=== PATIENT | female | born 1960 | race American Indian/Alaskan Native ===

== ENCOUNTER 2016-12-02 23:14 | Emergency (ER) | payer MEDICAID ==
[2016-12-02 23:22] VITALS: TEMP 98.7; BMI 19.5
--- NOTE | 2016-12-02 23:29 | ED PDOC ---
Arrival/HPI - General Chief Complaint: Psychiatric Evaluation Time Seen by Provider: 12/02/16 23:17 Historian: Patient, EMS - History of Present Illness Narrative History of Present Illness (Text): 12/02/16 23:26 Angelica Rene is a 56 year old female who presents to the Emergency department by EMS for suicidal ideation. Patient states she was feeling depressed and wanted to harm herself. Patient states she took 3 Ambien tonight and admits to drinking alcohol tonight. Patient denies any homicidal ideation, fever, chills, chest pain, shortness of breath, nausea, vomiting, diarrhea, urinary symptoms, back pain, neck pain, headache, dizziness, or any other complaints. Time/Duration: Other (tonight) Symptom Course: Unchanged Activities at Onset: Light, Emotional Upset Context: Home Past Medical History - Provider Review Nursing Documentation Reviewed: Yes - Psychiatric Hx Substance Use: No Family/Social History - Physician Review Nursing Documentation Reviewed: Yes Family/Social History: No Known Family HX Smoking Status: Unknown If Ever Smoked Hx Alcohol Use: Yes Hx Substance Use: No Allergies/Home Meds Allergies/Adverse Reactions: Allergies Unobtainable Allergy (Verified 12/02/16 23:21) Home Medications: Home Meds Medication Instructions Recorded Confirmed Unobtainable 12/02/16 12/02/16 Review of Systems - Physician Review All systems were reviewed & negative as marked: Yes - Review of Systems Constitutional: Normal. absent: Fevers Eyes: Normal ENT: Normal Respiratory: Normal. absent: SOB, Cough Cardiovascular: Normal. absent: Chest Pain Gastrointestinal: Normal Genitourinary Female: Normal Musculoskeletal: Normal Skin: Normal Neurological: Normal Endocrine: Normal Hemo/Lymphatic: Normal Psychiatric: Depression, Suicidal Ideation Physical Exam Vital Signs Reviewed: Yes Vital Signs Temp Pulse Resp BP Pulse Ox 12/03/16 06:21 62 17 104/70 99 12/03/16 05:53 65 14 125/87 98 12/03/16 05:38 76 16 155/104 H 99 12/03/16 05:11 74 156/100 H 12/03/16 04:54 74 15 162/104 H 97 12/03/16 03:05 80 16 130/90 98 12/03/16 00:58 75 18 132/86 96 12/02/16 23:21 98.7 F 87 16 147/93 H 96 Temperature: Afebrile Blood Pressure: Normal Pulse: Regular Respiratory Rate: Normal Appearance: Positive for: Well-Appearing, Non-Toxic, Comfortable Pain Distress: None Mental Status: Positive for: Lethargic - Systems Exam Head: Present: Atraumatic, Normocephalic Pupils: Present: PERRL Extroacular Muscles: Present: EOMI Conjunctiva: Present: Normal Mouth: Present: Moist Mucous Membranes Neck: Present: Normal Range of Motion Respiratory/Chest: Present: Clear to Auscultation, Good Air Exchange. No: Respiratory Distress, Accessory Muscle Use Cardiovascular: Present: Regular Rate and Rhythm, Normal S1, S2. No: Murmurs Abdomen: Present: Normal Bowel Sounds. No: Tenderness, Distention, Peritoneal Signs Back: Present: Normal Inspection Upper Extremity: Present: Normal Inspection. No: Cyanosis, Edema Lower Extremity: Present: Normal Inspection. No: Edema Neurological: Present: GCS=15, CN II-XII Intact Skin: Present: Warm, Dry, Normal Color. No: Rashes Psychiatric: Present: Lethargic Medical Decision Making ED Course and Treatment: 12/02/16 23:26 Impression: 56 year old female for depression and suicidal ideation after taking 3 Ambien. Differential Diagnosis include but are not limited to: depression vs. suicidal ideation Plan: -- EKG -- Chest X-ray -- Labs, alcohol level -- Urinalysis, urine drug screen -- Reassess and disposition Progress Notes: 12/02/16 23:51 reviewed EKG, NSR at [address]pm[address] Non-specific ST/T wave changes. 12/03/16 00:18 reviewed radiology, Chest X-ray shows no acute processes. 12/03/16 00:45 reviewed labs, potassium: 3.3, K-Dur ordered. Alcohol:77, negative drug screen. Pt medically cleared for psych evaluation. 12/03/16 04:47 Pt seen and evaluated by BALA Hale, who discussed case with Dr. Medrano. Pt to be screened by [facility]. - Lab Interpretations Lab Results: 12/02/16 23:40 12/02/16 23:40 Lab Results 12/02/16 23:40: Alcohol, Quantitative 77 H 12/02/16 23:40: Salicylates < 1 L, Acetaminophen < 10.0 L 12/02/16 23:40: Urine Opiates Screen Negative, Urine Methadone Screen Negative, Ur Barbiturates Screen Negative, Ur Phencyclidine Scrn Negative, Ur Amphetamines Screen Negative, U Benzodiazepines Scrn Negative, U Oth Cocaine Metabols Negative, U Cannabinoids Screen Negative 12/02/16 23:40: Sodium 142, Potassium 3.3 L, Chloride 108 H, Carbon Dioxide 24, Anion Gap 13, BUN 13, Creatinine 0.7, Est GFR ( Amer) > 60, Est GFR (Non- Af Amer) > 60, Random Glucose 94, Calcium 9.1, Total Bilirubin 0.6, AST 31, ALT 26, Alkaline Phosphatase 79, Total Protein 7.6, Albumin 4.1, Globulin 3.5, Albumin/Globulin Ratio 1.2 12/02/16 23:40: Urine Color Yellow, Urine Appearance Clear, Urine pH 6.0, Ur Specific [place] 1.020, Urine Protein Negative, Urine Glucose (UA) Negative, Urine Ketones Negative, Urine Blood Moderate H, Urine Nitrate Negative, Urine Bilirubin Negative, Urine Urobilinogen 0.2, Ur Leukocyte Esterase Small H, Urine RBC 0 - 2, Urine WBC 1 - 3, Ur Epithelial Cells 1 - 3, Urine Bacteria Few 12/02/16 23:40: WBC 7.3, RBC 4.07, Hgb 13.2, Hct 36.5, MCV 89.7, MCH 32.4, MCHC 36.2, RDW 12.1, Plt Count 201, MPV 9.5, Gran % 50.2, Lymph % (Auto) 43.4 H, [place] % (Auto) 5.0, Eos % (Auto) 1.1 L, Baso % (Auto) 0.3, Gran # 3.65, Lymph # 3.2, Gregory # 0.4, Eos # 0.1, Baso # 0.02 I have reviewed the lab results: Yes - RAD Interpretation Radiology Orders: 12/02/16 23:35 CHEST PORTABLE [RAD] Stat Beef Boner: ED Physician - EKG Interpretation Interpreted by ED Physician: Yes Type: 12 lead EKG - Medication Orders Current Medication Orders: Discontinued Medications Clonidine HCl (Catapres) 0.1 mg PO STAT STA Stop: 12/03/16 05:06 Last Admin: 12/03/16 05:11 Dose: 0.1 mg Potassium Chloride (K-Dur 20 Meq Er Tab) 20 meq PO ONCE ONE Stop: 12/03/16 01:04 Last Admin: 12/03/16 01:15 Dose: 20 meq - Transfer of Care Patient signed out to Dr:: anil [facility] - Ailinibbrian Statement The provider has reviewed the documentation as recorded by the Scribe Shahnaz Trejo All medical record entries made by the Scribe were at my direction and personally dictated by me. I have reviewed the chart and agree that the record accurately reflects my personal performance of the history, physical exam, medical decision making, and the department course for this patient. I have also personally directed, reviewed, and agree with the discharge instructions and disposition. Disposition/Present on Arrival - Present on Arrival Any Indicators Present on Arrival: No History of DVT/PE: No History of Uncontrolled Diabetes: No Urinary Catheter: No History of Decub. Ulcer: No History Surgical Site Infection Following: None - Disposition Have Diagnosis and Disposition been Completed?: Yes Diagnosis: Suicidal ideations Disposition Time: 07:00 Condition: GOOD
[2016-12-02 23:56] LABS: ADD MANUAL DIFF? NO
[2016-12-03 00:08] LABS: ALB/GLOB RATIO 1.2 (1.1-1.8); ALKALINE PHOSPHATASE 79 U/L (38-133); ALT/SGPT 26 U/L (7-56); AST/SGOT 31 U/L (15-39); BILIRUBIN,TOTAL 0.6 mg/dL (0.2-1.3); BLOOD UREA NITROGEN 13 mg/dL (7-21); CALCIUM 9.1 mg/dL (8.4-10.5); CARBON DIOXIDE 24 mmol/L (21-33); CHLORIDE 108 mmol/L (98-107); GFR AFRICAN-AMERICAN > 60; GLUCOSE,RANDOM 94 mg/dL (70-110); POTASSIUM 3.3 mmol/L (3.6-5.0); SODIUM 142 mmol/L (132-148); TOTAL PROTEIN 7.6 g/dL (5.8-8.3)
[2016-12-03 00:26] LABS: URINE BILIRUBIN NEGATIVE (NEGATIVE); URINE BLOOD MODERATE (NEGATIVE); URINE GLUCOSE (UA) NEGATIVE (NEGATIVE); URINE KETONE NEGATIVE (NEGATIVE); URINE LEUKOCYTE ESTERASE SMALL Leu/uL (NEGATIVE); URINE PROTEIN NEGATIVE mg/dL (<30 mg/dL); URINE UROBILINOGEN 0.2 E.U./dL (<1 E.U./dL)
[2016-12-03 00:27] LABS: BASO # 0.02 K/mm3 (0.0-2.0); BASO % 0.3 % (0.0-3.0); EOS # 0.1 (0.0-0.7); EOS % 1.1 % (1.5-5.0); GRAN # 3.65 (1.4-6.5); GRAN % 50.2 % (50.0-68.0); HEMATOCRIT 36.5 % (36.0-48.0); LYMPH # 3.2 (1.2-3.4); LYMPH % 43.4 % (22.0-35.0); MEAN CELL VOLUME 89.7 fL (80.0-105.0); MEAN CORPUSCULAR HEMOGLOBIN 32.4 pg (25.0-35.0); MEAN CORPUSCULAR HGB CONC 36.2 g/dl (31.0-37.0); MEAN PLATELET VOLUME 9.5 fl (7.0-11.0); MONO # 0.4 (0.1-0.6); PLATELET COUNT 201 10^3/uL (120.0-450.0); RED CELL DISTRIBUTION WIDTH 12.1 % (11.5-14.5); URINE APPEARANCE CLEAR (CLEAR); URINE COLOR YELLOW (YELLOW); WHITE BLOOD COUNT 7.3 10^3/ul (4.5-11.0)
[2016-12-03 00:42] LABS: URINE RBC 0 - 2 /hpf (0-2)
[2016-12-03 00:43] LABS: URINE BACTERIA FEW (NEG)
[2016-12-03] MEDS ORDERED: Potassium Chloride 20 mEq ER Tab PO ONE (01:03)
--- NOTE | 2016-12-03 07:02 | ED PDOC ---
Physical Exam Vital Signs Temp Pulse Resp BP Pulse Ox 12/03/16 13:18 64 18 132/65 100 12/03/16 11:21 61 18 134/61 100 12/03/16 10:00 64 17 139/64 100 12/03/16 08:00 58 L 15 127/72 97 12/03/16 06:21 62 17 104/70 99 12/03/16 05:53 65 14 125/87 98 12/03/16 05:38 76 16 155/104 H 99 12/03/16 05:11 74 156/100 H 12/03/16 04:54 74 15 162/104 H 97 12/03/16 03:05 80 16 130/90 98 12/03/16 00:58 75 18 132/86 96 12/02/16 23:21 98.7 F 87 16 147/93 H 96 Medical Decision Making ED Course and Treatment: 12/03/16 07:00 Case signed out to me by Dr. Corbin pending [facility] screeners evaluation Evaluated by [facility], not accepted. Dr. Medrano reviewed case, agrees with discharge. - Lab Interpretations Lab Results: 12/02/16 23:40 12/02/16 23:40 Lab Results 12/02/16 23:40: Alcohol, Quantitative 77 H 12/02/16 23:40: Salicylates < 1 L, Acetaminophen < 10.0 L 12/02/16 23:40: Urine Opiates Screen Negative, Urine Methadone Screen Negative, Ur Barbiturates Screen Negative, Ur Phencyclidine Scrn Negative, Ur Amphetamines Screen Negative, U Benzodiazepines Scrn Negative, U Oth Cocaine Metabols Negative, U Cannabinoids Screen Negative 12/02/16 23:40: Sodium 142, Potassium 3.3 L, Chloride 108 H, Carbon Dioxide 24, Anion Gap 13, BUN 13, Creatinine 0.7, Est GFR ( Amer) > 60, Est GFR (Non- Af Amer) > 60, Random Glucose 94, Calcium 9.1, Total Bilirubin 0.6, AST 31, ALT 26, Alkaline Phosphatase 79, Total Protein 7.6, Albumin 4.1, Globulin 3.5, Albumin/Globulin Ratio 1.2 12/02/16 23:40: Urine Color Yellow, Urine Appearance Clear, Urine pH 6.0, Ur Specific [place] 1.020, Urine Protein Negative, Urine Glucose (UA) Negative, Urine Ketones Negative, Urine Blood Moderate H, Urine Nitrate Negative, Urine Bilirubin Negative, Urine Urobilinogen 0.2, Ur Leukocyte Esterase Small H, Urine RBC 0 - 2, Urine WBC 1 - 3, Ur Epithelial Cells 1 - 3, Urine Bacteria Few 12/02/16 23:40: WBC 7.3, RBC 4.07, Hgb 13.2, Hct 36.5, MCV 89.7, MCH 32.4, MCHC 36.2, RDW 12.1, Plt Count 201, MPV 9.5, Gran % 50.2, Lymph % (Auto) 43.4 H, [place] % (Auto) 5.0, Eos % (Auto) 1.1 L, Baso % (Auto) 0.3, Gran # 3.65, Lymph # 3.2, [place] # 0.4, Eos # 0.1, Baso # 0.02 - RAD Interpretation Radiology Orders: 12/02/16 23:35 CHEST PORTABLE [RAD] Stat - Medication Orders Current Medication Orders: Discontinued Medications Clonidine HCl (Catapres) 0.1 mg PO STAT STA Stop: 12/03/16 05:06 Last Admin: 12/03/16 05:11 Dose: 0.1 mg Potassium Chloride (K-Dur 20 Meq Er Tab) 20 meq PO ONCE ONE Stop: 12/03/16 01:04 Last Admin: 12/03/16 01:15 Dose: 20 meq Disposition/Present on Arrival - Present on Arrival Any Indicators Present on Arrival: No History of DVT/PE: No History of Uncontrolled Diabetes: No Urinary Catheter: No History of Decub. Ulcer: No History Surgical Site Infection Following: None - Disposition Have Diagnosis and Disposition been Completed?: Yes Diagnosis: Suicidal ideations Disposition: HOME/ ROUTINE Disposition Time: 16:06 Patient Plan: Discharge Patient Problems: Current Active Problems Problem Status Onset Suicidal ideations Acute Condition: GOOD
--- NOTE | 2016-12-03 08:37 | RAD ---
PROCEDURE: CHEST RADIOGRAPH, 1 VIEW HISTORY: pes COMPARISON: None available. FINDINGS: LUNGS: Mild increased pulmonary vascular congestion. Linear opacity likely atelectasis in the right mid lung. PLEURA: No pneumothorax or pleural fluid seen. CARDIOVASCULAR: Normal. OSSEOUS STRUCTURES: The osseous structures demonstrate degenerative changes. VISUALIZED UPPER ABDOMEN: Normal. OTHER FINDINGS: None. IMPRESSION: Mild increased pulmonary vascular congestion. PA lateral chest radiographs recommended.
--- NOTE | 2016-12-03 10:42 | CARD ---
APPROVED REPORT EKG Measurement Heart [id number] <Conclusion> Sinus rhythm with 1st degree AV block Prolonged QTc
[2016-12-03 16:30] VITALS: BP 135/94; PULSE 73; RESP 17; O2SAT 98
== END 2016-12-03 16:30 | disposition home or self-care (01) ==
LOC: ED 23:14
DX: R45.851 Suicidal ideations (principal)